=== PATIENT | male | born 1970 | race Caucasian/White ===

== ENCOUNTER 2019-01-11 09:25 | Emergency (ER) | payer OTHER ==
[2019-01-11] MEDS ORDERED: Diphtheria,Pertussis(Acell),Tetanus Vaccine 0.5 ML Syringe IM ONE (09:41)
--- NOTE | 2019-01-11 09:42 | EDM.PDOC ---
ED HPI GENERAL MEDICAL PROBLEM - General Chief Complaint: Upper Extremity Injury/Pain Stated Complaint: FINGER INJURY Time Seen by Provider: 01/11/19 09:42 Source of Information: Reports: Patient History Limitations: Reports: No Limitations - History of Present Illness INITIAL COMMENTS - FREE TEXT/NARRATIVE: HISTORY AND PHYSICAL: History of present illness: Patient is a 48-year-old male presents to the ED with complaint of right middle finger injury. Patient states that he was taking 100 pound generator of her trailer when it fell and crushed his finger. He states he is unable to bend it secondary to the pain. He is not up-to-date on his tdap. Review of systems: As per history of present illness and below otherwise all systems reviewed and negative. Past medical history: As per history of present illness and as reviewed below otherwise noncontributory. Surgical history: As per history of present illness and as reviewed below otherwise noncontributory. Social history: No reported history of drug or alcohol abuse. Family history: As per history of present illness and as reviewed below otherwise noncontributory. Physical exam: General: Patient sitting comfortably in no acute distress and nontoxic appearing HEENT: Atraumatic, normocephalic, pupils reactive, negative for conjunctival pallor or scleral icterus, mucous membranes moist, throat clear, neck supple, nontender, trachea midline. No meningeal signs. Lungs: Clear to auscultation, breath sounds equal bilaterally, chest nontender. Heart: S1S2, regular, negative for clicks, rubs, or overt murmur. Abdomen: Soft, nondistended, nontender. Negative for masses or hepatosplenomegaly. Negative for costovertebral tenderness. No rigidity, rebound , guarding. Pelvis: Stable nontender. Genitourinary: Deferred. Rectal: Deferred. Extremities: There is are 2 1.5cm lacerations to the right middle finger. One over the PIP and one between on the PIP and CMP on the medial side of the finger. He is able to flex at the DIP, PIP, and CMP without difficulty. negative for cords or calf pain. Neurovascular unremarkable. Neuro: Awake, alert, oriented. Cranial nerves II through XII unremarkable. Cerebellum unremarkable. Motor and sensory unremarkable throughout. Exam nonfocal. Notes: Diagnostics: x-ray right hand Therapeutics: Prescriptions: Impression: Laceration, finger injury Plan: Keep the area clean and dry as instructed. Sutures will absorb on their own. Alternate tylenol and motrin as needed for discomfort Follow up with primary care provider Return to ED as needed as discussed Definitive disposition and diagnosis as appropriate pending reevaluation and review of above. Right Finger-Middle Pain Score (Numeric/FACES): 8 - Related Data Allergies Allergy/AdvReac Type Severity Reaction Status Date / Time Penicillins Allergy Hives Verified 01/11/19 09:36 Home Meds: Home Meds metFORMIN [Glucophage XR] 500 mg PO DAILY 01/11/19 [History] Review of Systems - Review of Systems Review Of Systems: ROS reveals no pertinent complaints other than HPI. ED EXAM, GENERAL - Physical Exam Exam: See Below (see dictation) ED TRAUMA EXTREMITY PROCEDURES - Laceration/Wound Repair Right Digit - 3rd (Middle) Lac/Wound Length In cm: 1.5 (2 lacerations ) Appearance: Superficial, Subcutaneous, Linear, Clean Distal NVT: Neuro & Vascular Intact, No Tendon Injury Anesthetic Type: Local Local Anesthesia - Lidocaine (Xylocaine): 1% Plain (digital block ) Local Anesthetic Volume: 5cc Skin Prep: Chlorhexidine (Hibiciens), Saline Saline Irrigation (cc's): 250 Exploration/Debridement/Repair: Wound Explored, In a Bloodless Field, Explored to Base, No Foreign Material Found, Wound Margins Revised Closed With: Sutures Suture Size: 4-0 # of Sutures: 8 (4 on each laceration; chromic gut ) Suture Type: Interrupted, Simple Course - Vital Signs Last Recorded V/S: Last Vital Signs Temp 97.3 F 01/11/19 09:37 Pulse 72 01/11/19 09:37 Resp 17 01/11/19 09:37 BP 138/72 01/11/19 09:37 Pulse Ox 96 01/11/19 09:37 - Orders/Labs/Meds Orders: Active Orders 24 hr Category Date Time Status Vaccines to be Administered [RC] PER UNIT ROUTINE Care 01/11/19 09:42 Active Meds: Medications Discontinued Medications Generic Name Dose Route Start Last Admin Trade Name Freq PRN Reason Stop Dose Admin Diphtheria/Tetanus/Acell Pertussis 0.5 ml 01/11/19 09:41 01/11/19 10:21 Adacel IM 01/11/19 09:42 0.5 ml .ONCE ONE Administration Lidocaine HCl Confirm 01/11/19 10:37 Xylocaine-Mpf 1% Administered 01/11/19 10:38 Dose 5 mls @ as directed .ROUTE .STK-MED ONE Ketorolac Tromethamine 60 mg 01/11/19 09:55 01/11/19 10:20 Toradol IM 01/11/19 09:56 60 mg ONETIME ONE Administration Lidocaine HCl 5 ml 01/11/19 09:55 01/11/19 10:21 Xylocaine-Mpf 1% INJECT 01/11/19 09:56 5 ml ONETIME ONE Administration Departure - Departure Time of Disposition: 10:55 Disposition: Home, Self-Care 01 Condition: Good Clinical Impression: Laceration, Finger injury - Discharge Information Referrals: PCP,Unknown [Primary Care Provider] - Forms: ED Department Discharge Additional Instructions: The following information is given to patients seen in the emergency department who are being discharged to home. This information is to outline your options for follow-up care. We provide all patients seen in our emergency department with a follow-up referral. The need for follow-up, as well as the timing and circumstances, are variable depending upon the specifics of your emergency department visit. If you don't have a primary care physician on staff, we will provide you with a referral. We always advise you to contact your personal physician following an emergency department visit to inform them of the circumstance of the visit and for follow-up with them and/or the need for any referrals to a consulting specialist. The emergency department will also refer you to a specialist when appropriate. This referral assures that you have the opportunity for follow-up care with a specialist. All of these measure are taken in an effort to provide you with optimal care, which includes your follow-up. Under all circumstances we always encourage you to contact your private physician who remains a resource for coordinating your care. When calling for follow-up care, please make the office aware that this follow-up is from your recent emergency room visit. If for any reason you are refused follow-up, please contact the [facility] Emergency Department at and asked to speak to the emergency department charge nurse. [facility] [address] [place] [id number] [facility] [address] [place] [id number] Keep the area clean and dry as instructed. Sutures will absorb on their own. Alternate tylenol and motrin as needed for discomfort Follow up with primary care provider Return to ED as needed as discussed - My Orders Last 24 Hours: My Active Orders 01/11/19 09:42 Vaccines to be Administered [RC] PER UNIT ROUTINE - Assessment/Plan Last 24 Hours: My Active Orders 01/11/19 09:42 Vaccines to be Administered [RC] PER UNIT ROUTINE
[2019-01-11] MEDS ORDERED: Ketorolac 60 MG/2 ML SDV IM ONE (09:55)
--- NOTE | 2019-01-11 10:10 | CR ---
INDICATION: Right hand injury. TECHNIQUE: Three views of the right hand. COMPARISON: None. FINDINGS: No soft tissue swelling, fracture, subluxation or other traumatic abnormality. 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 IMPRESSION: Negative right hand. Dictated by Mau Rahman MD @ Jan 11 2019 10:06AM Signed by Dr. Mau Rahman @ Jan 11 2019 10:09AM
[2019-01-11] MEDS ORDERED: Lidocaine 1% 0 ML ONE (10:37)
== END 2019-01-11 11:05 | disposition home or self-care (01) ==
LOC: MW.ED 09:25
DX: S61.212A Laceration without foreign body of right middle finger without damage to nail, initial encounter (principal); Z23 Encounter for immunization; Z88.0 Allergy status to penicillin; Z79.899 Other long term (current) drug therapy; W20.8XXA Other cause of strike by thrown, projected or falling object, initial encounter
CPT/HCPCS: 12001; 73130; 90471; 90715; 96372; 99283; J1885; J2001; 99282